=== PATIENT | female | born 2000 | race Caucasian/White ===

== ENCOUNTER 2022-09-01 17:50 | Emergency (ER) | payer BC, OTHER ==
[~2022-09-01] VITALS: Ht 190.5 cm; Wt 113.6 kg
[2022-09-01] MEDS ORDERED: AMOXIL500 M1 PO (19:49)
[2022-09-01 19:54] VITALS: BP 124/78
== END 2022-09-01 19:54 | disposition home or self-care (01) ==
LOC: ED 17:50
DX: J02.9 Acute pharyngitis, unspecified (principal); Z90.89 Acquired absence of other organs; Z20.822 Contact with and (suspected) exposure to COVID-19; Z28.310 Unvaccinated for COVID-19

== ENCOUNTER → 2022-10-30 | Outpatient (CLI) | payer BC, OTHER ==
[~2022-10-30] MED LIST: AMOXIL500 M1 PO
[2022-10-30 17:01] LABS: BASO # 0.05 K/mm3 (0.02-0.10); EOS # 0.18 K/mm3 (0.04-0.40); EOS % 2.1 % (1.0-5.0); HEMATOCRIT 38.9 % (37.0-47.0); HEMOGLOBIN 12.8 g/dL (12.5-16.0); LYMPH# 2.44 K/mm3 (1.50-4.00); MEAN CELL VOLUME 88 fl (78-100); MEAN CORPUSCULAR HEMOGLOBIN 29 pg (27-31); MEAN CORPUSCULAR HGB CONC 33 g/dL (33-37); MEAN PLATELET VOLUME 10.7 fl (7.4-10.4); MONO # 0.52 K/mm3 (0.20-0.80); NEU # 5.35 K/mm3 (1.40-6.50); PLATELET COUNT 222 K/mm3 (130-400); RED BLOOD COUNT 4.41 M/mm3 (4.10-5.30); RED CELL DISTRIBUTION WIDTH 12.7 % (11.5-14.5); WHITE BLOOD COUNT 8.6 K/mm3 (4.8-10.8)
[2022-10-30 17:04] LABS: POTASSIUM 3.9 mmol/L (3.5-5.1)
[2022-10-30 17:05] LABS: ALBUMIN 4.5 g/dL (3.5-5.0)
[2022-10-30 17:06] LABS: CALCIUM 9.6 mg/dL (8.3-10.5)
[2022-10-30 17:07] LABS: TOTAL PROTEIN 7.6 g/dL (6.4-8.3)
[2022-10-30 17:09] LABS: TOTAL BILIRUBIN 0.4 mg/dL (0.2-1.2)
== END ==
LOC: LAB 16:40
PROVIDERS: Internal Medicine
DX: Z00.00 Encounter for general adult medical examination without abnormal findings (principal); D64.9 Anemia, unspecified; G43.009 Migraine without aura, not intractable, without status migrainosus

== ENCOUNTER → 2023-07-30 | Outpatient (CLI) | payer OTHER ==
[2023-07-30 12:07] LABS: CLUE CELLS NOT OBSERVED (Not Observd)
== END ==
LOC: LAB 11:46
PROVIDERS: Nurse Practitioner
DX: N39.0 Urinary tract infection, site not specified (principal); N89.8 Other specified noninflammatory disorders of vagina; Z33.1 Pregnant state, incidental
CPT/HCPCS: Q0111

== ENCOUNTER → 2023-09-04 | Outpatient (CLI) | payer OTHER | LOC: LAB 12:51 | DX: R50.9 Fever, unspecified (principal) ==

== ENCOUNTER 2023-09-19 15:17 | Outpatient (RCR) | payer OTHER ==
[2023-09-12 15:30] VITALS: BP 131/81
[2023-09-12 18:25] VITALS: BP 119/72
[~2023-09-19] VITALS: Ht 190.5 cm; Wt 113.6 kg
[~2023-09-19 15:17] MED LIST changes: +FOLIC ACID 1 MG IV ONE; +MULTIVITAMINS IV ONE; +NS IV ONE; +Ondansetron 4 MG/2 ML VIAL IV ONE; +THIAMINE IV ONE
[2023-09-19] MEDS ORDERED: FOLIC ACID 1 MG IV ONE (15:30)
[2023-09-19] MEDS ORDERED: Ondansetron 4 MG/2 ML VIAL IV ONE (15:30)
[2023-09-19] MEDS ORDERED: MULTIVITAMINS IV ONE (15:30)
[2023-09-19] MEDS ORDERED: THIAMINE IV ONE (15:30)
[2023-09-19] MEDS ORDERED: NS IV ONE ×2 (15:30)
[2023-09-19 15:45] VITALS: BP 138/90
[2023-10-02] MEDS ORDERED: PHENERGAN 25 TA25 MG PO (17:28)
== END 2023-09-24 | disposition home or self-care (01) ==
LOC: AMSURD
DX: O21.9 Vomiting of pregnancy, unspecified (principal); Z3A.15 15 weeks gestation of pregnancy
CPT/HCPCS: J2405; J3411; J3490; J7040